=== PATIENT | female | born 2000 | race Caucasian/White ===

== ENCOUNTER 2019-03-01 21:04 | Emergency (ER) | payer OTHER ==
[2019-03-01 21:15] VITALS: BP 121/76; PULSE 82; RESP 18; TEMP 97.9
[2019-03-01] MEDS ORDERED: DEXAMETHASONE 4 MG TAB PO STA (21:48)
--- NOTE | 2019-03-01 21:49 | ED ---
URI HPI - General Chief Complaint: Upper Respiratory Infection Stated Complaint: poss cold,congested Time Seen by Provider: 03/01/19 21:24 Source: patient Mode of arrival: ambulatory Limitations: no limitations - History of Present Illness Initial Comments: 19-year-old female presenting for sore throat. Patient states the past 3 days she has had a cough. She states she developed a sore throat. Patient denies any chest pain shortness of breath fevers. Patient denies nausea vomiting down pain diarrhea. Patient denies any other complaints remaining review systems negative. Patient denies . - Related Data Previous Rx's Medication Instructions Recorded Amoxicillin 500 mg PO 20 #10 capsule 03/01/19 Allergies Allergy/AdvReac Type Severity Reaction Status Date / Time No Known Allergies Allergy Verified 03/01/19 21:15 Review of Systems ROS Statement: Those systems with pertinent positive or pertinent negative responses have been documented in the HPI. ROS Other: All systems not noted in ROS Statement are negative. Past Medical History Past Medical History: No Reported History History of Any Multi-Drug Resistant Organisms: None Reported Past Surgical History: No Surgical Hx Reported Past Psychological History: No Psychological Hx Reported Smoking Status: Never smoker Past Alcohol Use History: None Reported Past Drug Use History: None Reported General Exam - General Exam Comments Initial Comments: General: The patient is awake and alert, in no distress, and does not appear acutely ill. Eye: +3 mm pupils are equal, round and reactive to light, extra-ocular movements are intact. No nystagmus. There is normal conjunctiva bilaterally. No signs of icterus. No photophobia Ears, nose, mouth and throat: There are moist mucous membranes and no oral lesions. Oropharynx erythematous there is tenderness or enlargement no exudates .Uvula midline. Tympanic membranes are not erythematous or is no effusions bulging or retraction. No tenderness to palpation of the mastoid. No anterior cervical lymphadenopathy. Rhinorrhea, clear and bilateral nares. No tripoding, no drooling. Neck: The neck is supple, there is no tenderness or JVD. No nuchal rigidity Cardiovascular: There is a regular rate and rhythm. No murmur, rub or gallop is appreciated. Respiratory: Lungs are clear to auscultation, respirations are non-labored, breath sounds are equal. No wheezes, stridor, rales, or rhonchi. No retractions or abdominal breathing. Gastrointestinal: Soft, non-distended, non-tender abdomen without masses or organomegaly noted. There is no rebound or guarding present. Bowel sounds are unremarkable. Musculoskeletal: Normal ROM, no tenderness. Strength 5/5. Sensation intact. Radial pulses equal bilaterally 2+. Neurological: A&O x 3. CN II-XII intact grossly, There are no obvious motor or sensory deficits. Coordination appears grossly intact. Speech appears normal, no muffling. Skin: Skin is warm and dry and no rashes or lesions are noted. No extremity edema Psychiatric: Cooperative Limitations: no limitations Course Vital Signs 03/01/19 21:13 Temperature 97.9 F Pulse Rate 82 Respiratory 18 Rate Blood Pressure 121/76 O2 Sat by Pulse 99 Oximetry Medical Decision Making - Medical Decision Making 19-year-old female presents emergency department for evaluation of sore throat. Oropharynx erythematous tonsils enlargement. Consisted pharyngitis. Lungs clear. No other localizing findings. Patient was discharged with amoxicillin. Return parameters were discussed including if patient develops rash. Patient is discharged appearing well with instruction to follow-up with primary care provider provided a dose of Decadron in the emergency department Disposition Clinical Impression: Pharyngitis Disposition: HOME SELF-CARE Condition: Good Instructions (If sedation given, give patient instructions): Upper Respiratory Infection (ED) Additional Instructions: Please use medication as discussed. Please follow-up with family doctor in the next 2 days. If you develop rash return to ER. Please return to emergency room if the symptoms increase or worsen or for any other concerns. Prescriptions: Amoxicillin 500 mg PO 20 #10 capsule Is patient prescribed a controlled substance at d/c from ED?: No Referrals: None,Stated [Primary Care Provider] - 1-2 days Time of Disposition: 21:49
== END 2019-03-01 22:11 | disposition home or self-care (01) ==
LOC: EC 21:04
DX: J02.9 Acute pharyngitis, unspecified (principal)
CPT/HCPCS: 99283; J8540